=== PATIENT | female | born 1965 | race American Indian/Alaskan Native ===

== ENCOUNTER 2018-09-24 10:19 | Outpatient (CLI) | payer OTHER ==
--- NOTE | 2018-09-24 14:10 | Cat Scan Report ---
CT ABDOMEN PELVIS WITHOUT CONTRAST: HISTORY: Microscopic hematuria. COMPARISON: none. TECHNIQUE: Helical CT in 1.25mm intervals without IV contrast. Sagittal and coronal reconstructions. FINDINGS: Lung bases: Normal. Liver: Normal. Biliary system: Normal. Pancreas: Normal. Spleen: Normal. Kidneys/ureters/bladder: The kidneys are normal size, contour and position. There are 2 punctate calyceal stones at the inferior pole of the right kidney. A punctate calyceal stone is also identified at the superior pole and inferior pole of the left kidney. No evidence for cystic disease, mass, perinephric fluid, ureteral stones or hydronephrosis. The bladder is unremarkable. Multiple pelvic phleboliths are noted. Adrenal glands: Normal. Aorta: Normal. Intestines: Normal. Appendix: Normal. Pelvic viscera: Hysterectomy changes. Ascites: None. Adenopathy: None. Musculoskeletal: Intact. IMPRESSION: Bilateral nephrolithiasis as described.
== END 2018-09-24 10:20 | disposition home or self-care (01) ==
LOC: CT 10:19
PROVIDERS: ATTEND Urology
DX: N20.0 Calculus of kidney (principal); Z90.710 Acquired absence of both cervix and uterus
CPT/HCPCS: 74176